=== PATIENT | female | born 1995 | race Caucasian/White ===

== ENCOUNTER 2017-12-21 08:46 | Emergency (ER) | payer SELFPAY ==
[~2017-12-21 08:46] MED LIST: CYCL10TA29 PO
--- NOTE | 2017-12-21 08:48 | ER Report ---
History and Physical Time Seen By MD: 08:48 HPI/ROS CHIEF COMPLAINT: Cyst behind right ear HISTORY OF PRESENT ILLNESS: Patient is a 22-year-old female who presents emergency Department with swelling behind her right ear. She feels a round soft mass behind her that is gotten bigger over the past few days. Initially there was some redness overlying the mass which is now improved. She denies any fevers or chills she denies any trauma to the area. She denies any ear pain. Allergies: Coded Allergies: prednisone (Verified Adverse Reaction, Unknown, 12/21/17) Home Meds Active Scripts Cephalexin 500 Mg Tab (KEFLEX 500 MG TAB) 500 Mg Tablet, 500 MG PO Q6H for 10 Days, #40 TAB 0 Refills TAKE ONE TABLET BY MOUTH EVERY SIX HOURS Prov:CARLO HASTINGS MD 12/21/17 Cyclobenzaprine Hcl (CYCLOBENZAPRINE HCL) 10 Mg Tablet, 10 MG PO Q8H PRN for MUSCLE SPASMS, #20 TAB 0 Refills Prov:BLADIMIR WATERS DO 12/16/17 Past Medical/Surgical History Noncontributory towards this chief complaint Constitutional Vital Sign - Last 24 Hours 12/21/17 08:52 Temp 98.8 Pulse 66 Resp 14 B/P (MAP) 137/102 Pulse Ox 95 O2 Delivery Room Air Physical Exam General Appearance: Alert, no distress. Eyes: Pupils equal and round no pallor or injection. ENT, Mouth: Ears: Tympanic membranes are normal. Nose: No bleeding. Mouth: Mucous membranes are moist. Throat: No erythema or exudates there is no tonsillar hypertrophy and uvula is midline. Musculoskeletal: Neck is supple non tender, no adenopathy. Skin: Warm and dry, no rashes. Patient has a 2 cm in diameter cyst just behind the right ear. The area feels fluctuant. A bedside ultrasound was performed which revealed a fluid-filled abscess. Medical Decision Making ED Course/Re-evaluation ED Course 12/21/2017 9:24:16 am patient was suspected abscess by the right ear. Plan will be incision and drainage. ED procedure: After verbal informed consent was obtained. The area was cleansed with povidone iodine and wet-to-dry. 1-1/2 mL 1% lidocaine with epinephrine was injected in the area for local anesthesia with good effect. An 11 blade was used to make a 0.5 cm incision at the base of the abscess. Approximately 3 mL's of purulent fluid was drained. Topical antibiotics were placed postprocedure patient tolerated procedure well Decision to Disposition Date: Dec 21, 2017 Decision to Disposition Time: 09:41 Depart Departure Latest Vital Signs Vital Signs Date Time Temp Pulse Resp B/P (MAP) Pulse Ox O2 Delivery O2 Flow Rate FiO2 12/21/17 08:52 98.8 66 14 137/102 95 Room Air Impression: Primary Impression: Encounter for incision and drainage procedure Additional Impression: Abscess Condition: Improved Disposition: HOME OR SELF-CARE New Scripts Cephalexin 500 Mg Tab (KEFLEX 500 MG TAB) 500 Mg Tablet 500 MG PO Q6H for 10 Days, #40 TAB 0 Refills TAKE ONE TABLET BY MOUTH EVERY SIX HOURS Prov: CARLO HASTINGS MD 12/21/17 Patient Instructions: Abscess Incision and Drainage (DC) Additional Instructions: Take your antibiotics as prescribed until complete Warm soaks to the area 4 times a day for the next 5 days Return to the emergency department if symptoms recur or if you develop fever or redness from the incision site Problem Qualifiers CARLO HASTINGS MD Dec 21, 2017 08:48
[2017-12-21 08:52] VITALS: BP 137/102
[2017-12-21] MEDS ORDERED: CEPH500T7 PO (09:40)
== END 2017-12-21 09:45 | disposition home or self-care (01) ==
LOC: ER 09:12
DX: H60.01 Abscess of right external ear (principal)
CPT/HCPCS: 99282

== ENCOUNTER 2018-11-03 16:02 | Emergency (ER) | payer SELFPAY ==
[~2018-11-03 16:02] MED LIST changes: +CEPH500T7 PO
[2018-11-03 16:08] VITALS: BP 139/98
--- NOTE | 2018-11-03 16:18 | ER Report ---
History and Physical Time Seen By MD: 16:14 Hx. of Stated Complaint: HEADACHE SINCE 2AM AND TRIED ALLERGY PILL AND EXCEDRIN TENSION HEADACHE WITH NO RELIEF HPI/ROS CHIEF COMPLAINT: Headache, congestion HISTORY OF PRESENT ILLNESS: Patient is a 23-year-old female here with complaints of sinus pressure, congestion which progressed into headache at approximately 2:00 this morning. Patient also reports dental pain, mild extension of pain into the neck but denies fevers chills, chest pain, shortness breath, abdominal pain, nausea, vomiting, diarrhea. Patient is afebrile, hemodynamically stable at time of evaluation. REVIEW OF SYSTEMS: Constitutional: No fever, no chills. Eyes: No discharge. ENT: No sore throat. + Sinus pressure Cardiovascular: No chest pain, no palpitations. Respiratory: No cough, no shortness of breath. Gastrointestinal: No abdominal pain, no vomiting. Genitourinary: No hematuria. Musculoskeletal: No back pain. Skin: No rashes. Neurological: + Frontal headache. Allergies: Coded Allergies: prednisone (Verified Adverse Reaction, Unknown, 11/03/18) Home Meds Discontinued Scripts Cephalexin 500 Mg Tab (KEFLEX 500 MG TAB) 500 Mg Tablet, 500 MG PO Q6H for 10 Days, #40 TAB 0 Refills TAKE ONE TABLET BY MOUTH EVERY SIX HOURS Prov:CARLO HASTINGS MD 12/21/17 Cyclobenzaprine Hcl (CYCLOBENZAPRINE HCL) 10 Mg Tablet, 10 MG PO Q8H PRN for MUSCLE SPASMS, #20 TAB 0 Refills Prov:BLADIMIR WATERS DO 12/16/17 Constitutional Vital Sign - Last 24 Hours 11/03/18 16:08 Temp 97.9 Pulse 76 Resp 20 B/P (MAP) 139/98 Pulse Ox 95 O2 Delivery Room Air Physical Exam General Appearance: The patient is alert, has no immediate need for airway protection and no signs of toxicity. No acute distress Eyes: Pupils equal and round no pallor or injection. ENT, Mouth: Mucous membranes are moist. Respiratory: There are no retractions, lungs are clear to auscultation. Cardiovascular: Regular rate and rhythm. Gastrointestinal: Abdomen is soft and non tender, no masses, bowel sounds normal. Neurological: No focal neurological deficits, cranial nerves intact Skin: Warm and dry, no rashes. Musculoskeletal: Neck is supple non tender. Extremities are nontender, nonswollen and have full range of motion. DIFFERENTIAL DIAGNOSIS: After history and physical exam differential diagnosis was considered for headache including but not limited to subarachnoid hemorrhage, migraine headache, tension headache and infectious causes such as meningitis, pharyngitis and sinusitis. Medical Decision Making Data Points Laboratory Urinalysis Test 11/03/18 16:02 Urine HCG, Qualitative Negative (NEGATIVE) EKG/Imaging Imaging PATIENT NAME: Dia Hancock : 1995 MR: [id number] V: [id number] EXAM DATE: ORDERING PHYSICIAN: BLADIMIR WATERS [place]CHNOLOG[place] [facility] [place]: [place] : 1995 Visit/Account:[id number] Date of Sevice: 11/03/2018 CT FACIAL BONES W/O CONTRAST HISTORY: Trauma COMPARISON STUDIES: none TECHNIQUE: Axial images were obtained from the superior aspect of the orbits through the inferior aspect of mandible without intravenous contrast. Coronal reformatted images were obtained from the axial source data. One of the following dose optimization techniques was utilized in the performance of this exam: Automated exposure control; adjustment of the mA and/or kV according to the patient's size; or use of an iterative reconstruction technique. Specific details can be referenced in the facility's radiology CT exam operational policy. CONTRAST: None FINDINGS: Soft Tissues: Negative Mandible / TMJ: Negative Maxilla / pterygoid plates: Negative Zygoma: Negative Orbits: Negative Nasal bones / nasal septum: Negative Sinuses: Negative Mastoids: Negative Visualized brain: Negative Cervical spine: Negative IMPRESSION: No evidence of fracture of the facial bones. The zygomatic processes and pterygoid plates are intact. There is no evidence of nasal bone fracture. The orbital floors are intact. Report Dictated By: Hi Leonard at 11/03/2018 5:13 PM Report E-Signed By: Hi Leonard at 11/03/2018 5:15 PM WSN:[id number] PATIENT NAME: Dia Hancock : 1995 MR: [id number] V: [id number] EXAM DATE: [id number] ORDERING PHYSICIAN: BLADIMIR WATERS [place]CHNOLOG[place] [facility] [place] Dia [place] : 1995 Visit/Account:[id number] Date of Sevice: 11/03/2018 Study: CT scan of the brain without intravenous contrast. Indication: Headache Comparison study:None Technique: Multiple axial images were obtained through the brain without the use of intravenous contrast. One of the following dose optimization techniques was utilized in the performance of this exam: Automated exposure control; adjustment of the mA and/or kV according to the patient's size; or use of an iterative reconstruction technique. Specific details can be referenced in the facility's radiology CT exam operational policy. The examination demonstrates no evidence of acute intracranial hemorrhage. There is no evidence of extra-axial collection or hydrocephalus. There is no abnormal density identified within the brain parenchyma. There is no evidence of disruption of the peripheral painting-white junction. The bony structures are unremarkable. IMPRESSION:Unremarkable CT scan of the brain without contrast. ED Course/Re-evaluation ED Course Patient is a 23-year-old female here with complaints of headaches, sinus pressure, general malaise which hasn't been responding to allergy medications. Cranial nerves were intact, no focal neurological deficits elicited on examination. CT imaging was completed to rule out intracranial pathology, no sinus disease, abscess. No acute findings were elucidated by CT imaging. Patient was advised to pursue conservative management, oral fluids, antipyretics as needed. Close PCP follow-up recommended. Return precautions provided. Medrol Dosepak prescribed. Decision to Disposition Date: Nov 03, 2018 Decision to Disposition Time: 17:25 Depart Departure Latest Vital Signs Vital Signs Date Time Temp Pulse Resp B/P (MAP) Pulse Ox O2 Delivery O2 Flow Rate FiO2 11/03/18 16:08 97.9 76 20 139/98 95 Room Air Impression: Primary Impression: Headache Condition: Improved Disposition: HOME OR SELF-CARE New Scripts Methylprednisolone (METHYLPREDNISOLONE) 4 Mg Tab.ds.pk 4 MG PO DIRECTED, #1 PACK Prov: BLADIMIR WATERS DO 11/03/18 Patient Instructions: Acute Headache (ED) Additional Instructions: Please drink plenty water. Please take Medrol Dosepak as prescribed for tr eatment of inflammation and swelling.. CT imaging did not find significant sinus disease, intracranial findings, abscess. Please follow up closely with your primary care provider in the next 24-48 hours for repeat evaluation. Please continue take antipyretics, NSAIDs as needed. BLADIMIR WATERS DO Nov 03, 2018 16:18
--- NOTE | 2018-11-03 17:22 | RADIOLOGY IMAGING REPORT ---
FACILITY: [facility] PATIENT NAME: Dia Hancock : 1995 MR: [id number] V: [id number] EXAM DATE: ORDERING PHYSICIAN: BLADIMIR WATERS TECHNOLOGIST: Location: [facility] - [place] Patient: Dia Hancock : 1995 Visit/Account:[id number] Date of Sevice: 11/03/2018 Study: CT scan of the brain without intravenous contrast. Indication: Headache Comparison study:None Technique: Multiple axial images were obtained through the brain without the use of intravenous contr ast. One of the following dose optimization techniques was utilized in the performance of this exam: Autom ated exposure control; adjustment of the mA and/or kV according to the patient's size; or use of an i terative reconstruction technique. Specific details can be referenced in the facility's radiology C T exam operational policy. The examination demonstrates no evidence of acute intracranial hemorrhage. There is no evidence of ex tra-axial collection or hydrocephalus. There is no abnormal density identified within the brain parenchyma. There is no evidence of disruption of the peripheral painting-white junction. The bony structures are unremarkable. IMPRESSION:Unremarkable CT scan of the brain without contrast. Report Dictated By: Hi Leonard at 11/03/2018 5:08 PM Report E-Signed By: Hi Leonard at 11/03/2018 5:13 PM WSN:[email or web address]
--- NOTE | 2018-11-03 17:23 | RADIOLOGY IMAGING REPORT ---
FACILITY: [facility] PATIENT NAME: Dia Hancock : 1995 MR: [id number] V: [id number] EXAM DATE: ORDERING PHYSICIAN: BLADIMIR WATERS TECHNOLOGIST: Location: [facility] [place] Patient: Dia Hancock : 1995 Visit/Account:[id number] Date of Sevice: 11/03/2018 CT FACIAL BONES W/O CONTRAST HISTORY: Trauma COMPARISON STUDIES: none TECHNIQUE: Axial images were obtained from the superior aspect of the orbits through the inferior as pect of mandible without intravenous contrast. Coronal reformatted images were obtained from the axia l source data. One of the following dose optimization techniques was utilized in the performance of this exam: Autom ated exposure control; adjustment of the mA and/or kV according to the patient's size; or use of an i terative reconstruction technique. Specific details can be referenced in the facility's radiology C T exam operational policy. CONTRAST: None FINDINGS: Soft Tissues: Negative Mandible / TMJ: Negative Maxilla / pterygoid plates: Negative Zygoma: Negative Orbits: Negative Nasal bones / nasal septum: Negative Sinuses: Negative Mastoids: Negative Visualized brain: Negative Cervical spine: Negative IMPRESSION: No evidence of fracture of the facial bones. The zygomatic processes and pterygoid plates are intact . There is no evidence of nasal bone fracture. The orbital floors are intact. Report Dictated By: Hi Leonard at 11/03/2018 5:13 PM Report E-Signed By: Hi Leonard at 11/03/2018 5:15 PM WSN:[email or web address]
[2018-11-03] MEDS ORDERED: METH4TAB66 PO (17:33)
== END 2018-11-03 17:45 | disposition home or self-care (01) ==
LOC: ER 16:33
DX: R51 Headache (principal)
CPT/HCPCS: 70450; 70486; 81025; 99284